=== PATIENT | female | born 1980 | race Caucasian/White ===

== ENCOUNTER → 2020-12-30 | Outpatient (CLI) | payer BC ==
[~2020-12-30] MED LIST: CITALOPRAM HBR40 MG PO; FOLIC ACID 1 MG1 MG PO; LIBRIUM CAP 2525 MG PO; MAGNESIUM OXID400 M1 PO; MULTIVITAMINS1 EAC1 PO; NORVASC5 MG PO; POTASSIUM CHLO10 ME1 PO; SYNTHROID200 MCG PO; THIAMINE HCL100 MG PO
== END ==
LOC: KOH-I 08:30
DX: R74.01 Elevation of levels of liver transaminase levels (principal); K76.0 Fatty (change of) liver, not elsewhere classified
CPT/HCPCS: 76705

== ENCOUNTER → 2021-04-11 | Outpatient (CLI) | payer BC | LOC: CT 01-13 09:00 | DX: R93.2 Abnormal findings on diagnostic imaging of liver and biliary tract (principal); K76.0 Fatty (change of) liver, not elsewhere classified | CPT/HCPCS: 36415; 74170; 82565; Q9967 ==